=== PATIENT | male | born 1965 | race Caucasian/White ===

== ENCOUNTER 2021-02-10 04:23 | Emergency (ER) | payer MEDICAID ==
--- NOTE | 2021-02-10 04:44 | ED Physician Documentation ---
History of Present Illness - Stated complaint Stated Complaint: L FINGER SWELLING - Chief complaint Chief Complaint: Ext Problem - History obtained from History obtained from: Patient - History of Present Illness Timing: How many days ago (2) - Additonal information Additional information: 55-year-old male with a history of osteoarthritis has not taken the ring off of his ring finger on the left hand for more than 4 months and he has noted that he has little increased swelling and his ring is fitting tighter over the past 2 days and this evening awoke him up because of pain in his finger. He is not able to get the ring off. Review of Systems Constitutional: denies: Fever Ears: denies: Ear pain Nose: denies: Congestion Throat: denies: Sore throat Respiratory: denies: Cough GI: denies: Nausea, Vomiting PD PAST MEDICAL HISTORY - Past Medical History Past Medical History: Yes Cardiovascular: Other Musculoskeletal: Osteoarthritis Other Past Medical History: cardiac ablation - Past Surgical History Past Surgical History: Yes Ortho: Hip replacement - Present Medications Home Medications: Ambulatory Orders Medication Instructions Recorded Confirmed No Known Home Medications 02/10/21 02/10/21 - Allergies Allergies/Adverse Reactions: Allergies Allergy/AdvReac Type Severity Reaction Status Date / Time No Known Drug Allergies Allergy Verified 02/10/21 04:26 - Social History Does the pt smoke?: No Smoking Status: Never smoker Does the pt drink ETOH?: Yes Does the pt have substance abuse?: No - Immunizations Immunizations are current?: Yes - POLST Patient has POLST: No PD ED PE NORMAL - Vitals Vital signs reviewed: Yes (Hypertensive) - General General: Alert and oriented X 3, No acute distress, Well developed/nourished - HEENT HEENT: Atraumatic, PERRL, EOMI - Respiratory Respiratory: No respiratory distress - Derm Derm: Normal color, Warm and dry, No rash - Extremities Extremities: No deformity, No edema, Other (The ring is indeed fitting tightly on the left ring finger. There is swelling without discoloration to the finger and the swelling is minimal but present. This ring does not look like it will come over this knuckle.) - Neuro Neuro: Alert and oriented X 3, mold hoister 2-12 intact, No motor deficit, No sensory deficit, Normal speech Eye Opening: Spontaneous Motor: Obeys Commands Verbal: Oriented GCS Score: 15 - Psych Psych: Normal mood, Normal affect Results - Vitals Vitals: Vital Signs - 24 hr 02/10/21 02/10/21 04:26 04:33 Temperature 36.1 C L 36.1 C L Heart Rate 81 81 Respiratory 17 17 Rate Blood Pressure 149/102 H 149/102 H O2 Saturation 98 98 Oxygen O2 Source Room air PD MEDICAL DECISION MAKING - ED course Complexity details: re-evaluated patient, considered differential, d/w patient ED course: 55-year-old male with a tight fitting ring on the left ring finger presents to the emergency department to have his ring removed. The ring is removed with a ring cutter. The ring was made of titanium and it was difficult to cut. I do not suspect that the swelling that the patient has is anything significant and it appears this ring became stuck over time with progressive osteoarthritis causing increased bone diameter. Departure - Departure Disposition: 01 Home, Self Care Clinical Impression: Constrictive jewelry of finger Qualifiers: Encounter type: initial encounter Qualified Code(s): S60.449A - External constriction of unspecified finger, initial encounter Follow-Up: [facility] [Provider Group]
[2021-02-10 05:38] VITALS: BP 142/99
== END 2021-02-10 05:37 | disposition home or self-care (01) ==
LOC: ED 04:23
DX: S60.445A External constriction of left ring finger, initial encounter (principal); W49.04XA Ring or other jewelry causing external constriction, initial encounter
CPT/HCPCS: 99281; 99282